=== PATIENT | male | born 1990 | race Asian ===

== ENCOUNTER 2017-03-31 21:18 | Emergency (ER) | payer SELFPAY ==
[~2017-03-31] VITALS: Ht 198.1 cm; Wt 99.8 kg
[2017-03-31 21:25] VITALS: BP_SYST 130
[2017-03-31] MEDS ORDERED: DIPH-TET-PERTUS Vaccine 0.5 ML VIAL (ADACEL) IM ONE (22:30)
[2017-03-31 22:45] VITALS: BP_SYST 128
== END 2017-03-31 22:45 | disposition home or self-care (01) ==
LOC: SED 21:18
DX: S61.234A Puncture wound without foreign body of right ring finger without damage to nail, initial encounter (principal); W54.0XXA Bitten by dog, initial encounter; Y93.89 Activity, other specified; Y92.89 Other specified places as the place of occurrence of the external cause; Y99.8 Other external cause status
CPT/HCPCS: 90715; 99283